=== PATIENT | male | born 1995 | race Caucasian/White ===

== ENCOUNTER 2023-11-02 09:27 | Emergency (ER) | payer SELFPAY ==
[2023-11-02] MEDS: Acetaminophen 325 MG Tab PO ONE (10:40)
[2023-11-02 11:15] LABS: APPEARANCE,URINE CLEAR (Clear); BILIRUBIN,URINE NEGATIVE (Negative); COLOR,URINE YELLOW (Yellow); GLUCOSE,URINE NEGATIVE (Negative); KETONES,URINE NEGATIVE (Negative); LEUKOCYTE ESTERASE,URINE NEGATIVE (Negative); NITRITE,URINE NEGATIVE (Negative); OCCULT BLOOD,URINE NEGATIVE (Negative); PROTEIN,URINE NEGATIVE (Negative); UROBILINOGEN,URINE 0.2 (0.2-1.0)
[2023-11-02 11:23] LABS: BASOPHILS PERCENT AUTO 0.2 % (0.0-1.0); EOSINOPHILS ABSOLUTE AUTO 0.1 K/mm3 (0.0-0.4); EOSINOPHILS PERCENT AUTO 1.5 % (0.0-6.0); HEMATOCRIT 43.1 % (42.0-52.0); HEMOGLOBIN 15.5 gm/dl (14.0-18.0); IMMATURE GRAN ABSOLUTE AUTO 0.01 K/mm3 (0.00-0.05); IMMATURE GRAN PERCENT AUTO 0.2 % (0.0-0.4); LYMPHOCYTES ABSOLUTE AUTO 1.5 K/mm3 (1.0-4.8); LYMPHOCYTES PERCENT AUTO 30.7 % (24.0-44.0); MEAN CORPUSCULAR VOLUME 91.9 fl (83.0-99.0); MEAN PLATELET VOLUME 9.4 fl (9.4-12.4); MONOCYTES ABSOLUTE AUTO 0.5 K/mm3 (0.0-0.8); MONOCYTES PERCENT AUTO 10.5 % (0.0-8.0); NEUTROPHILS ABSOLUTE AUTO 2.7 K/mm3 (1.8-7.7); NEUTROPHILS PERCENT AUTO 56.9 % (41.0-71.0); PLATELET COUNT,PLT 188 K/mm3 (150-400); RED BLOOD CELL COUNT 4.69 M/mm3 (4.52-5.90); WHITE BLOOD CELL COUNT,WBC 4.76 K/mm3 (3.9-11.3)
[2023-11-02 11:44] LABS: A/G RATIO 1.3 (1-2); ALBUMIN 3.8 g/dl (3.4-5.0); ANION GAP 10.2 (5-15); BILIRUBIN TOTAL 0.5 mg/dL (0.2-1.0); BUN/CREATININE RATIO 8.2 (14-18); CREATININE 1.1 mg/dL (0.7-1.3); EST CRCL DRUG DOSING (CG) 114.17 mL/min; POTASSIUM,K 4.2 mEq/L (3.5-5.1); PROTEIN TOTAL,TP 6.8 g/dl (6.4-8.2)
== END 2023-11-02 12:50 | disposition home or self-care (01) ==
LOC: JD.ED 09:27
DX: S39.012A Strain of muscle, fascia and tendon of lower back, initial encounter (principal); F17.210 Nicotine dependence, cigarettes, uncomplicated; Z86.16 Personal history of COVID-19; Z79.899 Other long term (current) drug therapy; Z88.0 Allergy status to penicillin
CPT/HCPCS: 36415; 80053; 81003; 85025; 99284; A9270-GY